=== PATIENT | female | born 1980 | race African-American/Black ===

== ENCOUNTER 2016-10-12 19:12 | Inpatient (IN) ==
[2016-10-12] MEDS ORDERED: NS 1,000 ML IV ONE ×2 (19:44→21:41)
[2016-10-12] MEDS ORDERED: TORADOL IV ONE (19:44)
[2016-10-12] MEDS ORDERED: ATIVAN IV ONE (19:44)
[2016-10-12 20:03] LABS: BASO% 0.1 % (0.0-0.8); HEMATOCRIT 31.9 % (37.0-47.0); HEMOGLOBIN 10.4 g/dL (12.0-16.0); IMM GRAN# 0.09 X1000 (0.0-0.04); IMM GRAN% 0.4 % (0.0-0.5); LYMPH# 0.82 X1000 (1.2-3.4); LYMPH% 3.7 % (20.5-51.1); MANUAL DIFF NEEDED? NO; MCH 23.6 PG (27-31); MCHC 32.6 g/dL (33-37); MCV 72.3 FL (81-99); MONO# 2.73 X1000 (0.11-0.59); MONO% 12.2 % (1.7-9.3); MPV 10.1 FL (7.4-10.4); NEUT% 83.6 % (42.2-75.2); PLT 489 X1000 (130-400); RBC 4.41 XMIL (4.2-5.4)
[2016-10-12 20:09] LABS: URINE MICRO REVIEW NEEDED? NO; URINE SOURCE CLEAN CATCH
[2016-10-12 20:12] LABS: INR 1.08; PROTIME 11.4 Seconds (9.2-11.7); PTT 30.1 Seconds (22.0-36.0)
[2016-10-12 20:16] LABS: BILIRUBIN URINE NEGATIVE (NEGATIVE); BLOOD URINE MODERATE (NEGATIVE); COLOR YELLOW; GLUCOSE URINE NEGATIVE (NEGATIVE); LEUKOCYTES URINE SMALL (NEGATIVE); NITRITE URINE NEGATIVE (NEGATIVE); PH URINE 6.5; PROTEIN URINE 200 mg/dL (NEGATIVE); SP GRAVITY URINE 1.018; TURBIDITY URINE CLEAR (CLEAR); UROBILINOGEN URINE 2 mg/dL (NORMAL)
[2016-10-12 20:17] LABS: UR EPITHELIAL CELLS <10 /HPF (<10); URINE BACTERIA NEGATIVE /HPF; URINE CULTURE NEEDED? YES
[2016-10-12 20:23] LABS: AGAP 17; ALBUMIN 4.1 g/dL (3.5-5.0); ALKALINE PHOSPHATASE 73 U/L (32-104); BUN 7 mg/dL (8-22); CALCIUM 9.3 mg/dL (8.8-10.2); CHLORIDE 97 mmol/L (98-107); COSMO 272; GOT 11 U/L (10-30); GPT 7 U/L (10-36); LIPASE 21 U/L (13-60); POTASSIUM 2.7 mmol/L (3.5-5.1); SODIUM 136 mmol/L (136-145); TCO2 22 mmol/L (25-35); TOTAL BILIRUBIN 0.42 mg/dL (0.20-1.00); TOTAL PROTEIN 7.9 g/dL (6.3-8.3)
[2016-10-12 20:31] LABS: CK PROFILE 314 U/L (24-173)
[2016-10-12] MEDS ORDERED: POTASSIUM CHLORIDE 40 MEQ/SWI 40 MEQ/100 ML IVPB IV ONE (20:36)
[2016-10-12 20:54] LABS: CK INDEX 0.3 (0.0-2.5)
--- NOTE | 2016-10-12 21:03 | PROVIDER DOCUMENTATION ---
HPI-General Adult - General Chief Complaint: Chest Pain Stated Complaint: CEHST PAIN Time Seen by Provider: 10/12/16 19:36 Source: patient Allergies/Adverse Reactions: Patient Allergies Allergy/AdvReac Type Severity Reaction Status Date / Time Penicillins Allergy Severe ANAPHYLAXIS Verified 09/30/16 15:23 prochlorperazine edisylate * Allergy Severe ANAPHYLAXIS Verified 09/30/16 15:23 [From Compazine] prochlorperazine maleate * Allergy Severe ANAPHYLAXIS Verified 09/30/16 15:23 [From Compazine] Home Medications: Home Medication List Medication Instructions Recorded Confirmed Last Taken Type NK [No Home Medications] 09/30/16 09/30/16 Unknown History - History of Present Illness -Gen Adult Nature of Presenting Problems: Patient presents complains of chest pain, dyspnea, abd pain, n/v. This all started this morning and has gradually worsened. Originally started and sharp right upper chest pain but "it now goes to my left chest and abdomen". She points to her epigastric/RUQ when asked where hurts the worst. Endorses back pain, cough. Denies dysuria, diarrhea, hemoptysis Location of Pain/Injury: reports: chest, abdomen Quality of Pain: reports: aching Severity: reports: severe Onset/Duration: reports: 4-6 hours ago Timing: reports: getting worse Context/Activities at Onset: reports: none Modifying Factors: improves with: movement, palpation Associated Symptoms: reports: anxiety, back/neck pain, chest pain, cough, nausea , shortness of breath, vomiting. denies: fever/chills, rash, syncope Similar Symptoms Previously?: No Recently seen or treated by another doctor?: No Review of Systems - Adult - REVIEW OF SYSTEMS - ADULT Constitutional: reports: chills Eyes: reports: no symptoms reported Ears, Nose, Mouth & Throat: reports: no symptoms reported Cardiovascular: reports: see HPI. denies: orthopnea, palpitations, syncope Respiratory: reports: see HPI, cough Gastrointestinal: reports: see HPI, frequent heartburn Genitourinary: reports: no symptoms reported Musculoskeletal: reports: back pain Integumentary: reports: no symptoms reported Neurological: reports: no symptoms reported Psychiatric: reports: no symptoms reported Endocrine: reports: no symptoms reported Hematologic/Lymphatic: reports: no symptoms reported Allergic/Immunologic: reports: no symptoms reported All Other Systems: Reviewed and Negative Past History - Adult - PAST MEDICAL HISTORY-ADULT Review of Records: reports: Old Records Reviewed, Nursing Assessment Review, Medications Reviewed, Social history reviewed & non-contributory. Major Childhood Illnesses: reports: denies history Cardiovascular: reports: denies history Respiratory: reports: asthma Gastrointestinal: reports: GERD Obstetrical/Gynecological: reports: denies history Genitourinary: reports: denies history Musculoskeletal: reports: denies history Neurological: reports: denies history Endocrine/Immune: reports: denies history Other Conditions: reports: denies history - PRIOR SURGERIES/PROCEDURES Surgical/Procedure History: reports: appendectomy, BTL, - IMMUNIZATION STATUS Childhood Immunizations: See Nurse Assessment Flu Vaccine: See Nurse Assessment - FAMILY HISTORY Family History: reviewed, not pertinent Physical Exam-General - PHYSICAL EXAM-ADULT Initial Vital Signs Reviewed: Yes - CONSTITUTIONAL General Appearance: alert, mild distress, anxious - EYES Eyes: PERRL/EOMI, pink conjunctivae - HEAD, EARS, NOSE, MOUTH & THROAT HENMT: normocephalic/atraumatic - NECK Neck: full range of motion - RESPIRATORY Respiratory: lungs clear, normal breath sounds, other (mild tenderness to sternum) - CARDIOVASCULAR Cardiovascular: normal peripheral pulses, no murmur, tachycardia - GASTROINTESTINAL (ABDOMEN) Abdominal Exam: normal bowel sounds, soft, tenderness (tenderness to epigastric/ RUQ. +lang's sign.) - LYMPHATIC Lymphatic: no adenopathy - MUSCULOSKELETAL Back Exam: normal inspection, no CVA tenderness Extremity: normal range of motion, non-tender. negative: calf tenderness Peripheral Pulses: radial (R): 2+, radial (L): 2+ - SKIN Integumentary: normal color, normal turgor, warm/dry - NEUROLOGIC Neurologic: grossly normal - PSYCHIATRIC Psych/Mental Status: normal mood/affect, oriented x 3 Progress - PLAN OF CARE/RESULTS Progress/Plan/Lab Results: Vital Signs - 8 hr 10/12/16 19:26 10/12/16 20:25 Temperature 99.6 F Pulse Rate 103 H 101 H Respiratory Rate 18 28 H Blood Pressure 164/107 155/112 O2 Sat by Pulse Oximetry 98 100 Bedside Urine ED: Urine Bedside Start: 10/12/16 20:06 Freq: Status: Active Activity Type Activity Date Activity User E-Sign Co-Sign Detail Recorded Client Recorded Date Recorded By Document 10/12/16 20:07 [id number] 10/12/16 20:07 [id number] 10/12/16 20:07 Point of Care [Bedside Point of Care] -Lot # [id number] - Results Negative -Control Line Visible? Yes Laboratory Results - last 24 hr 10/12/16 10/12/16 10/12/16 19:45 19:45 19:45 WBC 22.46 H RBC 4.41 Hgb 10.4 L Hct 31.9 L MCV 72.3 L MCH 23.6 L MCHC 32.6 L RDW Std Deviation 17.6 H Plt Count 489 H MPV 10.1 Immature Gran % (Auto) 0.4 Neut % (Auto) 83.6 H Lymph % (Auto) 3.7 L [place] % (Auto) 12.2 H Eos % (Auto) 0.0 Baso % (Auto) 0.1 Immature Gran # (Auto) 0.09 H Neut # (Auto) 18.80 H Lymph # (Auto) 0.82 L [place] # (Auto) 2.73 H Eos # (Auto) 0.00 Baso # (Auto) 0.02 PT INR PTT (Actin FS) D-Dimer 0.34 Sodium 136 Potassium 2.7 L Chloride 97 L Carbon Dioxide 22 L Anion Gap 17 BUN 7 L Creatinine 0.9 Estimated GFR/1.73 m2 > 60 BUN/Creatinine Ratio 8 Glucose 138 H Calculated Osmolality 272 Calcium 9.3 Magnesium Total Bilirubin 0.42 AST 11 ALT 7 L Alkaline Phosphatase 73 Creatine Kinase 314 H Creatine Kinase Index 0.3 CK-MB (CK-2) 1.00 Troponin T Total Protein 7.9 Albumin 4.1 Globulin 3.8 Albumin/Globulin Ratio 1.1 Lipase 21 Urine Source Urine Color Urine Turbidity Urine pH Ur Specific [place] Urine Protein Ur Glucose (Stick) Ur Ketones (Stick) Urine Blood Urine Nitrite Urine Bilirubin Urobilinogen Dipstick Urine Leukocytes Urine WBC (Auto) Urine RBC (Auto) U Epithel Cells (Auto) Urine Bacteria (Auto) Urine Test 10/12/16 10/12/16 10/12/16 19:45 19:45 19:45 WBC RBC Hgb Hct MCV MCH MCHC RDW Std Deviation Plt Count MPV Immature Gran % (Auto) Neut % (Auto) Lymph % (Auto) [place] % (Auto) Eos % (Auto) Baso % (Auto) Immature Gran # (Auto) Neut # (Auto) Lymph # (Auto) [place] # (Auto) Eos # (Auto) Baso # (Auto) PT 11.4 INR 1.08 PTT (Actin FS) 30.1 D-Dimer Sodium Potassium Chloride Carbon Dioxide Anion Gap BUN Creatinine Estimated GFR/1.73 m2 BUN/Creatinine Ratio Glucose Calculated Osmolality Calcium Magnesium 1.5 Total Bilirubin AST ALT Alkaline Phosphatase Creatine Kinase Creatine Kinase Index CK-MB (CK-2) Troponin T < 0.010 Total Protein Albumin Globulin Albumin/Globulin Ratio Lipase Urine Source Urine Color Urine Turbidity Urine pH Ur Specific [place] Urine Protein Ur Glucose (Stick) Ur Ketones (Stick) Urine Blood Urine Nitrite Urine Bilirubin Urobilinogen Dipstick Urine Leukocytes Urine WBC (Auto) Urine RBC (Auto) U Epithel Cells (Auto) Urine Bacteria (Auto) Urine Test 10/12/16 10/12/16 20:06 20:06 WBC RBC Hgb Hct MCV MCH MCHC RDW Std Deviation Plt Count MPV Immature Gran % (Auto) Neut % (Auto) Lymph % (Auto) [place] % (Auto) Eos % (Auto) Baso % (Auto) Immature Gran # (Auto) Neut # (Auto) Lymph # (Auto) [place] # (Auto) Eos # (Auto) Baso # (Auto) PT INR PTT (Actin FS) D-Dimer Sodium Potassium Chloride Carbon Dioxide Anion Gap BUN Creatinine Estimated GFR/1.73 m2 BUN/Creatinine Ratio Glucose Calculated Osmolality Calcium Magnesium Total Bilirubin AST ALT Alkaline Phosphatase Creatine Kinase Creatine Kinase Index CK-MB (CK-2) Troponin T Total Protein Albumin Globulin Albumin/Globulin Ratio Lipase Urine Source CLEAN CATCH Urine Color YELLOW Urine Turbidity CLEAR Urine pH 6.5 Ur Specific [place] 1.018 Urine Protein 200 A Ur Glucose (Stick) NEGATIVE Ur Ketones (Stick) 10 A Urine Blood MODERATE A Urine Nitrite NEGATIVE Urine Bilirubin NEGATIVE Urobilinogen Dipstick 2 A Urine Leukocytes SMALL A Urine WBC (Auto) 10-20 A Urine RBC (Auto) 10-20 A U Epithel Cells (Auto) <10 Urine Bacteria (Auto) NEGATIVE Urine Test NEGATIVE Orders Category Date Time Status Cardiac Monitoring DIRECTED Care 10/12/16 19:44 Active Saline Loc NOW Care 10/12/16 19:44 Active CHEST-2 VIEWS [RAD] Stat Exams 10/12/16 19:[address] ABD/PELVIS W/ IV CONT ONLY [CT] Stat Exams 10/12/16 20:33 Taken BLOOD CULTURE [BLDCUL] Stat Lab 10/12/16 20:11 Uncollected CBC WITH ELECTRONIC DIFF [HEME] Stat Lab 10/12/16 19:45 Completed CK PROFILE [SP CHEM] Stat Lab 10/12/16 19:45 Completed COMPREHENSIVE METABOLIC PANEL [CHEM] Stat Lab 10/12/16 19:45 Completed D-DIMER [CHEM] Stat Lab 10/12/16 19:45 Completed LACTATE, PLASMA [CHEM] Stat Lab 10/12/16 20:11 Uncollected LIPASE [CHEM] Stat Lab 10/12/16 19:45 Completed MAGNESIUM [CHEM] Stat Lab 10/12/16 19:45 Completed TEST-URINE [PREG] Stat Lab 10/12/16 20:06 Completed PROTIME WITH INR [COAG] Stat Lab 10/12/16 19:45 Completed PTT [COAG] Stat Lab 10/12/16 19:45 Completed TROPONIN T Stat Lab 10/12/16 19:45 Completed UA NIMS W/REFLEX CULT [URINALYSIS] Stat Lab 10/12/16 20:06 Completed URINE CULTURE [RM] Routine Lab 10/12/16 20:18 Received 0.9% Sodium Chloride Inj [Ns] 1,000 ml Med 10/12/16 19:44 Discontinued IV 999 mls/hr Ketorolac [Toradol] Med 10/12/16 19:44 Discontinued 30 mg IV NOW ONE Lorazepam [Ativan] Med 10/12/16 19:44 Discontinued 0.5 mg IV NOW ONE Potassium Chloride 20 Meq/Swi Med 10/12/16 21:00 Active 20 meq in 100 ml IV Q2H EKG [EKG] Stat Ther 10/12/16 19:17 Ordered 2130: pt feeling better Result Diagrams: 10/13/16 08:38 10/13/16 08:38 - XRAY 1 XRAY Study: Chest Impression: Normal, See EMR Report XRAY Interpretation: per radiologist - CT/MRI 1 CT Study: Abdomen, Pelvis Impression: See EMR Report (IMPRESSION: 1.Heterogeneous uterus as described suggesting uterine fibroids. 2.Small septated left adnexal cyst. 3.Focal consolidation in the middle lobe of the right lung. Focal pneumonia cannot be excluded.) - CONSULTS/PCP/HOSPITALIST Notification #1 *Consult/PCP/Hospitalist*: Dr. Melendez by Dr. Blackwood Time Discussed: 00:00 Consult Disposition: Admit - CHANGE OF SHIFT REPORT (ED Provider) Items Pending: Ultrasound Results Departure - Departure Date of Disposition Decision: 10/13/16 Time of Disposition Decision: 00:00 DIAGNOSIS: Hypokalemia Pneumonia Qualifiers: Pneumonia type: due to unspecified organism Laterality: right Lung location: middle lobe of lung Qualified Code(s): J18.1 - Lobar pneumonia, unspecified organism Anemia Qualifiers: Anemia type: unspecified type Qualified Code(s): D64.9 - Anemia, unspecified Leukocytosis Qualifiers: Leukocytosis type: other Qualified Code(s): D72.828 - Other elevated white blood cell count Disposition: ADMITTED INPATIENT 09 Certified Medical Emergency: Emergent Condition: Stable - Critical Care Note This patient required my direct & personal management of CC.: No Attestation - Physician/ RAE Attestation Patient care was provided by Advanced Practice Provider:: Yes Advanced Practice Provider:: Merlin Neil Advanced Practice Provider documentation review:: The Mid-level provider documentation, treatment plan and medical decision making was reviewed by the physician who agrees with all treatment and medical decision making by the MLP.
--- NOTE | 2016-10-12 21:06 | Diag Imaging Result Doc PS360 ---
EXAM: CT ABD/PELVIS W/ IV CONT ONLY INDICATION: epigastric pain TECHNIQUE: Dose reduction protocol was used. COMPARISON: 08/03/2016 FINDINGS: There is a partially imaged focal airspace consolidation in the middle lobe of the right lung. Focal pneumonia should be considered. There appears to have been a prior appendectomy. Uterus is heterogeneous and contains a coarse calcification and a 3.8 cm low dense mass involving the fundus of the uterus. This is most compatible with a fibroid uterus. There is a 2 cm septated left adnexal cyst. There is trace fluid layering in the pelvis, usually physiologic. No focal inflammatory change or free abdominal gas is appreciated. There is no evidence of bowel obstruction. The remainder of the solid viscera of the abdomen and pelvis and the remainder of the GI tract are essentially unremarkable. IMPRESSION: 1.Heterogeneous uterus as described suggesting uterine fibroids. 2.Small septated left adnexal cyst. 3.Focal consolidation in the middle lobe of the right lung. Focal pneumonia cannot be excluded. 4.Other incidental/nonacute findings detailed above. Electronically signed by Chas Marie 10/12/2016 9:03 PM
--- NOTE | 2016-10-12 21:11 | Diag Imaging Result Doc PS360 ---
EXAM: CHEST-2 VIEWS INDICATION: CP TECHNIQUE: 2 views COMPARISON: 08/02/2016 FINDINGS: The lungs are grossly clear. There is no discrete pleural fluid collection or pneumothorax. The cardiomediastinal silhouette and central vasculature are grossly unremarkable. IMPRESSION: No evidence of acute pathology by plain radiograph. Electronically signed by Chas Marie 10/12/2016 9:09 PM
[2016-10-12] MEDS ORDERED: FLAGYL 500 MG/NS 500 MG/100 ML IVPB IV ONE (21:23)
[2016-10-12] MEDS ORDERED: LEVAQUIN 750 MG/D5W 750 MG/150 ML IVPB IV ONE (21:23)
[2016-10-12] MEDS: POTASSIUM CHLORIDE 20 MEQ/SWI 20 MEQ/100 ML IVPB IV SCH ×2 (21:34→23:35)
[2016-10-12] MEDS ORDERED: NS 1,000 ML ONE (21:42)
--- NOTE | 2016-10-12 23:26 | Diag Imaging Result Doc PS360 ---
EXAM: US GB < RUQ (LIMITED) HISTORY: epigastric pain TECHNIQUE: COMPARISON: 11/11/2014 FINDINGS: Normal pancreas. No aneurysmal dilatation to the abdominal aorta. Normal inferior vena cava. Normal liver. No ascites in the right upper quadrant. There are multiple stones within the gallbladder. The gallbladder wall is not thickened. The common bile duct measures 3 mm. Normal right kidney. No hydronephrosis. IMPRESSION: Cholelithiasis. No change since the prior exam. Electronically signed by Geovany Stark 10/12/2016 11:24 PM
--- NOTE | 2016-10-13 00:42 | ED EKG INTERP ---
This chart was entered by Amanda Melgar Scribe, acting as scribe for Dickson Blackwood MD. EKG Interpretation - EKG Time of EKG reading by physician:: 19:19 EKG Read and Signed by:: iDckson Blackwood EKG Interpretation (*Must complete 3 of following elements*): Abnormal Rate: 106 Rhythm: Sinus Tachycardia QRS: LVH (moderate voltage criteria) Comments: Abnormal ECG, nonspecific t wave abnormality This chart was documented by the indicated scribe, (Amanda Melgar Scribe) and accurately reflects the services I performed and decisions made by Jaison jacobo Christophe I, MD, as attested by the provider's signature.
[2016-10-13] MEDS ORDERED: MORPHINE IV PRN (01:20)
[2016-10-13] MEDS ORDERED: ATIVAN IV PRN (03:03)
[2016-10-13] MEDS ORDERED: KLOR-CON PO ONE (03:03)
[2016-10-13] MEDS ORDERED: MAGNESIUM SULFATE 1 GM/D5W 1 GM/100 ML IVPB IV ONE (03:03)
[2016-10-13] MEDS ORDERED: LEVAQUIN 750 MG/D5W 750 MG/150 ML IVPB IV SCH (03:03)
[2016-10-13] MEDS ORDERED: NS 1,000 ML IV ONE (03:03)
[2016-10-13] MEDS: MORPHINE IV PRN ×4 (04:28→23:04)
[2016-10-13] MEDS: APRESOLINE IV PRN ×3 (04:29→17:20)
[2016-10-13] MEDS ORDERED: G.I. COCKTAIL PO ONE (04:35)
[2016-10-13] MEDS: PRILOSEC PO SCH (06:18)
[2016-10-13] MEDS: DUONEB (A & A) INH SCH ×6 (06:32→23:00)
--- NOTE | 2016-10-13 07:02 | EKG Report ---
Test Performed on : 10/12/2016 7:19:10 PM Test Reason : pain Blood Pressure : / mmHG Vent. Rate : 106 BPM Atrial Rate : 106 BPM P-R Int : 152 ms QRS Dur : 088 ms QT Int : 354 ms P-R-T Axes : 063 057 059 degrees QTc Int : 470 ms Sinus tachycardia. Moderate voltage criteria for LVH, may be normal variant Nonspecific T wave abnormality Abnormal ECG When compared with ECG of 07-MAY-2015 10:15, Nonspecific T wave abnormality now evident in Lateral leads Unconfirmed Result
--- NOTE | 2016-10-13 08:28 | HISTORY AND PHYSICAL ---
PRIMARY CARE PHYSICIAN: None. CHIEF COMPLAINT: Cough, fever, and chills for 2-3 days. HISTORY OF PRESENTING ILLNESS: This 36-year-old female without any significant past medical history presented to the emergency department with about 3 days' history of having some fevers, cough, and she states it was productive of yellowish material. She states it seemed to be getting worse and subsequently she had come to the emergency department. In the ER, she was evaluated. She had imaging done, which did show the possibility of right middle lobe pneumonia. Due to her presenting symptoms, it was thought that she would need hospitalization for further management. At the time of my examination, she denied any headache, nausea, vomiting, diarrhea, chest pain, hemoptysis, or melena. Complained of cough, fever, chills, and not feeling well. PAST MEDICAL HISTORY: None. PAST SURGICAL HISTORY: Appendectomy. ALLERGIES: Penicillin and Compazine. CURRENT MEDICATIONS: As listed in the MAR. SOCIAL HISTORY: A 12 pack-year history of smoking. Admits to social alcohol use. Denies any illicit drug use. FAMILY HISTORY: No history of coronary artery disease. REVIEW OF SYSTEMS: Twelve-point review of systems is as listed in the HPI. Other systems negative. PHYSICAL EXAMINATION: GENERAL: Cooperative, friendly, female. She is resting more comfortably now. VITAL SIGNS: Temperature 99.6 degrees, pulse 103, respirations 18, blood pressure 164/107. HEENT: Atraumatic, normocephalic. Extraocular movements intact. PERRLA. NECK: No masses. CHEST: Bibasilar rales. CARDIOVASCULAR: Regular rate and rhythm. ABDOMEN: Soft. Positive bowel sounds. EXTREMITIES: No edema. NEUROLOGIC: She is awake, alert, and oriented x3. GENITOURINARY: No bladder distention. SKIN: Warm. LABORATORIES AND STUDIES: WBC 22.46, hemoglobin 10.4, hematocrit 31.9, and platelets 489,000. Sodium 136, potassium 2.7, chloride 97, CO2 of 22, BUN 7, creatinine 0.9, and glucose is 138. ASSESSMENT: A 36-year-old female without any significant past medical history who presented to the emergency department with 3 days' history of having fever, chills, and a productive cough. She had imaging done in the ER that was consistent with pneumonia. Subsequently, she will need hospitalization for further management. 1. Community-acquired pneumonia. 2. Hypokalemia. 3. Ongoing tobacco abuse. PLAN: 1. We will admit patient to medical floor with telemetry. 2. We will check blood cultures and start patient on IV antibiotics. 3. We will replace her potassium and monitor electrolytes. 4. 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 5. Put patient on deep vein thrombosis prophylaxis with SCDs. 6. We will continue to follow and reassess. cc: Rai Montenegro MD
[2016-10-13] MEDS: MUCINEX PO SCH ×2 (08:35→20:12)
[2016-10-13 09:23] LABS: AGAP 18; BUN 5 mg/dL (8-22); CALCIUM 8.8 mg/dL (8.8-10.2); CHLORIDE 98 mmol/L (98-107); COSMO 272; POTASSIUM 3.7 mmol/L (3.5-5.1); SODIUM 137 mmol/L (136-145); TCO2 21 mmol/L (25-35)
[2016-10-13 09:27] LABS: BASO% 0.2 % (0.0-0.8); EOS# 0.02 X1000 (0.0-0.7); EOS% 0.1 % (0.0-10.0); HEMATOCRIT 31.7 % (37.0-47.0); HEMOGLOBIN 10.2 g/dL (12.0-16.0); IMM GRAN# 0.14 X1000 (0.0-0.04); IMM GRAN% 0.5 % (0.0-0.5); LYMPH# 1.53 X1000 (1.2-3.4); LYMPH% 5.1 % (20.5-51.1); MANUAL DIFF NEEDED? YES; MCH 23.3 PG (27-31); MCHC 32.2 g/dL (33-37); MCV 72.4 FL (81-99); MONO# 2.83 X1000 (0.11-0.59); MONO% 9.3 % (1.7-9.3); MPV 9.9 FL (7.4-10.4); NEUT% 84.8 % (42.2-75.2); PLT 444 X1000 (130-400); RBC 4.38 XMIL (4.2-5.4)
[2016-10-13 09:29] LABS: BANDS 10 % (0-1); HYPOCHROM 2+; LYMPHS 4 % (21-51); MONO 4 % (1-9)
[2016-10-13] MEDS ORDERED: TYLENOL PO PRN (12:09)
[2016-10-14] MEDS: LEVAQUIN 750 MG/D5W 750 MG/150 ML IVPB IV SCH (02:31)
[2016-10-14] MEDS: DUONEB (A & A) INH SCH ×6 (03:30→23:18)
[2016-10-14 05:17] LABS: BASO% 0.1 % (0.0-0.8); EOS# 0.04 X1000 (0.0-0.7); EOS% 0.3 % (0.0-10.0); HEMATOCRIT 29.2 % (37.0-47.0); HEMOGLOBIN 9.5 g/dL (12.0-16.0); IMM GRAN# 0.04 X1000 (0.0-0.04); IMM GRAN% 0.3 % (0.0-0.5); LYMPH# 1.61 X1000 (1.2-3.4); LYMPH% 10.7 % (20.5-51.1); MANUAL DIFF NEEDED? YES; MCH 23.6 PG (27-31); MCHC 32.5 g/dL (33-37); MCV 72.6 FL (81-99); MONO# 1.66 X1000 (0.11-0.59); MONO% 11.1 % (1.7-9.3); MPV 10.1 FL (7.4-10.4); NEUT% 77.5 % (42.2-75.2); PLT 366 X1000 (130-400); RBC 4.02 XMIL (4.2-5.4)
[2016-10-14 05:45] LABS: AGAP 15; BUN 5 mg/dL (8-22); CALCIUM 8.9 mg/dL (8.8-10.2); CHLORIDE 99 mmol/L (98-107); COSMO 268; POTASSIUM 3.1 mmol/L (3.5-5.1); SODIUM 135 mmol/L (136-145); TCO2 21 mmol/L (25-35)
[2016-10-14] MEDS: PRILOSEC PO SCH (06:31)
[2016-10-14 08:10] LABS: LYMPHS 11 % (21-51); MONO 8 % (1-9)
[2016-10-14] MEDS: PRINIVIL PO SCH (08:39)
[2016-10-14] MEDS: MUCINEX PO SCH ×3 (08:39→22:44)
--- NOTE | 2016-10-14 13:44 | PROGRESS NOTE ---
DATE: 10/14/2016 SUBJECTIVE: Patient reports feeling fine. No shortness of breath. No fever reported. OBJECTIVE: Vital Signs: Temperature 98.6 degrees, heart rate 93, respiratory rate 18, blood pressure 143/96, O2 saturation 100% on room air. General Examination: This is a 36-year-old, female lying in bed, in no acute distress. HEENT: Head is normocephalic, atraumatic. Anicteric sclerae and pale conjunctivae. Neck: Supple. No JVD noted. No carotid bruits. Cardiovascular: S1, S2 heard. No murmurs, gallops, or rubs. Regular rate and rhythm. Respiratory: Clear bilaterally to auscultation. No work of breathing or using accessory muscles. Abdomen: Soft, nontender to palpation. Bowel sounds present. No organomegaly. Extremities: No clubbing, cyanosis, or edema. Peripheral pulses present in both legs. Neurologic exam: Patient alert and oriented x3. Able to move her extremities. Cranial nerves 2-12 grossly normal. LABORATORY DATA: White cell count 15,000, hemoglobin 9.5, hematocrit 29.2, platelets 366,000. Sodium 135, potassium 3.5, rest of the BMP is completely unremarkable. ASSESSMENT AND PLAN: 1. Community-acquired pneumonia. 2. Hypokalemia. 3. Tobacco abuse. PLAN: Patient clinically is doing better. Less tired and no fever any more. White cell count is trending down. At this time, we are going to continue with Levaquin and will check CBC tomorrow. But clinically she can be discharged on levofloxacin. For hypokalemia that has been supplemented. She has been counseled about smoking tobacco. cc: David De Guzman MD
[2016-10-15] MEDS: DUONEB (A & A) INH SCH ×2 (03:20→07:58)
[2016-10-15] MEDS: LEVAQUIN 750 MG/D5W 750 MG/150 ML IVPB IV SCH (05:04)
[2016-10-15 05:28] LABS: BASO% 0.4 % (0.0-0.8); EOS# 0.08 X1000 (0.0-0.7); EOS% 1.1 % (0.0-10.0); HEMATOCRIT 26.8 % (37.0-47.0); HEMOGLOBIN 8.6 g/dL (12.0-16.0); LYMPH# 2.24 X1000 (1.2-3.4); LYMPH% 29.7 % (20.5-51.1); MANUAL DIFF NEEDED? NO; MCH 23.3 PG (27-31); MCHC 32.1 g/dL (33-37); MCV 72.6 FL (81-99); MONO# 0.99 X1000 (0.11-0.59); MONO% 13.1 % (1.7-9.3); MPV 10.2 FL (7.4-10.4); NEUT% 55.7 % (42.2-75.2); PLT 360 X1000 (130-400); RBC 3.69 XMIL (4.2-5.4)
[2016-10-15] MEDS ORDERED: PNEUMOVAX 23 IM ONE (05:46)
[2016-10-15 05:51] LABS: AGAP 15; BUN 10 mg/dL (8-22); CALCIUM 8.9 mg/dL (8.8-10.2); CHLORIDE 102 mmol/L (98-107); COSMO 280; POTASSIUM 3.1 mmol/L (3.5-5.1); SODIUM 141 mmol/L (136-145); TCO2 24 mmol/L (25-35)
[2016-10-15] MEDS: PRILOSEC PO SCH (06:33)
[2016-10-15 07:32] VITALS: BP 154/88
[2016-10-15] MEDS ORDERED: KLOR-CON PO ONE (07:51)
[2016-10-15] MEDS: MUCINEX PO SCH (10:23)
[2016-10-15] MEDS: PRINIVIL PO SCH (10:23)
--- NOTE | 2016-10-15 22:27 | DISCHARGE SUMMARY ---
ADMISSION DATE: 10/13/2016 DISCHARGE DATE: 10/15/2016 CONSULTATIONS: None. PERTINENT PROCEDURES: 1. Chest x-ray showed no evidence of acute pathology. 2. Abdomen and pelvis CT showed heterogeneous uterus suggesting uterine fibroid, small left adnexal cyst, focal consolidation in the middle lobe of the right lung. Focal pneumonia could not be excluded. 3. Abdominal ultrasound showed cholelithiasis. No change from prior. DISCHARGE DIAGNOSES: 1. Community-acquired pneumonia. Patient will continue on p.o. Levaquin. 2. Hypokalemia improved with supplementation. 3. Tobacco abuse. The patient has been educated daily on smoking cessation as well as the means to quit. HOSPITAL COURSE: Briefly, Ms. Petty is a 36-year-old female without any significant past medical history, who presented to the ED with a 3 day history of fevers and cough that was productive of yellowish sputum that seemed to be getting worse so she reported to the ED. In the ED she was evaluated. She had imaging done that showed the possibility of a right middle lobe pneumonia. Laboratory data revealed a white count of 22, potassium of 2.7. She was admitted for acute community-acquired pneumonia and hypokalemia. Blood cultures were checked as well as starting her on IV antibiotics. Her potassium was supplemented. Her electrolytes were monitored daily. She was counseled on smoking cessation as well as the means to quit daily. Her white count has trended down with the initiation of IV antibiotics. Her cultures have been negative. She has been afebrile since admission. She did have some episodes of hypertension while she was admitted and she is being discharged home on lisinopril. The patient has clinically improved. VITAL SIGNS AT TIME OF HER DISCHARGE: Temperature is 98.8 degrees, heart rate 75, respirations 16, blood pressure 154/88, O2 is 100% on room air. DISCHARGE DIET: Regular. DISCHARGE MEDICATIONS: 1. Levofloxacin 750 mg p.o. daily. 2. Prinivil 20 mg p.o. daily. FOLLOWUP: Ms. Petty is being discharged home with her mother. She will follow up with her PCP, Dr. Teo Montalvo. She will take all medications as prescribed. Continue with aggressive pulmonary toilet. coughing and deep breathing as well as smoking cessation. The patient can return to the ED for any worsening of symptoms. DISCHARGE TIME: 30 minutes. Dictated by SHANTELLE Banks for David De Guzman MD cc: MD Teo Allen MD
== END 2016-10-15 10:37 | disposition home or self-care (01) ==
LOC: ED 19:12 → SUATTDRO 10-13 02:43 → 3S 10-13 02:43 → 4N 10-14 13:39
PROVIDERS: ATTEND Internal Medicine